=== PATIENT | female | born 1990 | race Caucasian/White ===

== ENCOUNTER 2025-07-13 12:27 | Emergency (ER) | payer SELFPAY ==
[~2025-07-13] VITALS: Ht 165.1 cm; Wt 81.0 kg
[2025-07-13 12:28] VITALS: O2SAT 98
[2025-07-13 17:20] VITALS: BP 128/84; PULSE 78; RESP 14; TEMP 36.4; O2SAT 100
== END 2025-07-13 17:30 | disposition home or self-care (01) ==
LOC: ER 12:58
DX: F41.9 Anxiety disorder, unspecified (principal); T49.0X5A Adverse effect of local antifungal, anti-infective and anti-inflammatory drugs, initial encounter; Y92.89 Other specified places as the place of occurrence of the external cause
CPT/HCPCS: 99283